=== PATIENT | female | born 1975 | race Two or more races ===

== ENCOUNTER 2017-04-15 09:33 | Emergency (ER) | payer OTHER ==
[2017-04-15 09:38] VITALS: BP 107/72; PULSE 88; TEMP 98; BMI 33.3
--- NOTE | 2017-04-15 10:06 | PDOC ---
History of Present Illness - General Chief Complaint: Respiratory Stated Complaint: SOB Time Seen by Provider: 04/15/17 09:41 History Source: Patient Exam Limitations: No Limitations - History of Present Illness Initial Comments: 04/15/17 09:52 Patient is a 41 y/o female, history of asthma presents emergency department for continual wheezing. Patient states that 2 weeks ago she developed a cough and cold-like symptoms, son with same, was seen by her PMD today started on prednisone 40 mg once a day for 5 days has now completed still with wheezing, productive green sputum cough. Denies fever. Allergies: No known allergies Medications: Albuterol when necessary Family History: Non-contributory Social History: Denies smoking, alcohol use, or IVDU Review of Systems GENERAL/CONSTITUTIONAL: No fever or chills. No weakness. No weight change. HEAD, EYES, EARS, NOSE AND THROAT: No change in vision. No ear pain or discharge. No sore throat. CARDIOVASCULAR: No chest pain or shortness of breath. RESPIRATORY: Productive cough and wheezing, no hemoptysis. GASTROINTESTINAL: No nausea, vomiting, diarrhea or constipation. No rectal bleeding. GENITOURINARY: No dysuria, frequency, or change in urination. MUSCULOSKELETAL: No joint or muscle swelling or pain. No neck or back pain. SKIN : No rash or easy bruising. Physical Exam: GENERAL: The patient is awake, alert, and fully oriented, in no acute distress. EYES: Pupils equal, round and reactive to light, extraocular movements intact, sclera anicteric, conjunctiva clear. ENT: Ears normal, nares patent, oropharynx clear without exudates. Moist mucous membranes. No uvula deviation NECK: Normal range of motion, supple without lymphadenopathy, JVD, or masses. LUNGS: Bilateral rhonchi and expiratory wheezing no crackles HEART: Regular rate and rhythm, normal S1 and S2 without murmur, rub or gallop. ABDOMEN: Soft, nontender, normoactive bowel sounds. No guarding, no rebound. No masses. No bruising or abrasions SKIN: Warm, Dry, normal turgor, no rashes or lesions noted. Past History - Past Medical History Allergies/Adverse Reactions: Allergies Allergy/AdvReac Type Severity Reaction Status Date / Time No Known Allergies Allergy Verified 04/15/17 09:34 Home Medications: Ambulatory Orders Albuterol 0.083% Nebulizer Mell [Ventolin 0.083% Nebulizer Soln -] 1 neb NEB QID 05/06/16 Albuterol Sulfate Inhaler - [Ventolin HFA Inhaler -] 1 - 2 inh PO Q4H 05/06/16 Calcium Carbonate [Calcium] 500 mg PO DAILY 05/06/16 Fluticasone Propionate [Flovent Diskus] 100 mcg IH DAILY 05/06/16 Azithromycin [Zithromax 250mg Tablets -] 250 mg PO UTDICT #6 tab 04/15/17 Anemia: Yes Asthma: Yes HTN: No (LOW BP) Suicide Attempt (Hx): No - Surgical History Cholecystectomy: Yes GI Surgery: Yes (gastric bypass [facility]) - Immunization History Immunization Up to Date: Yes - Psycho/Social/Smoking Cessation Hx Anxiety: No Suicidal Ideation: No Smoking Status: Yes Smoking History: Current every day smoker Have you smoked in the past 12 months: Yes Number of Cigarettes Smoked Daily: 10 Information on smoking cessation initiated: Yes 'Breaking Loose' booklet given: 04/15/17 Hx Alcohol Use: No Drug/Substance Use Hx: No Substance Use Type: None *Physical Exam - Vital Signs Last Vital Signs Temp Pulse Resp BP Pulse Ox 98.0 F 88 18 107/72 100 04/15/17 09:35 04/15/17 09:35 04/15/17 09:35 04/15/17 09:35 04/15/17 09:35 Medical Decision Making - Medical Decision Making 04/15/17 10:06 A/P: Patient with URI, asthma exacerbation. Posttreatment decreased wheezing. Combivent treatment given, will DC patient on azithromycin continued albuterol treatments. Decadron given while in emergency department. O2 sats 100%, lungs clear on reassessment. I discussed the physical exam findings, ancillary test results and final diagnoses with the patient. I answered all of the patient's questions. The patient was satisfied with the care received and felt comfortable with the discharge plan and treatment plan. The patient will call to arrange follow-up and will return to the Emergency Department with any new, persistent or worsening symptoms. 04/15/17 10:32 *DC/Admit/Observation/Transfer Diagnosis at time of Disposition: Bronchitis - Discharge Dispostion Admit: No - Prescriptions Prescriptions: Azithromycin [Zithromax 250mg Tablets -] 250 mg PO UTDICT #6 tab - Patient Instructions Printed Discharge Instructions: DI for Chronic Bronchitis
[2017-04-15] MEDS ORDERED: DEXAMETHASONE LIQUID 0.5 MG/5 ML 240 ML BULK BOTTLE PO ONE (10:07)
[2017-04-15] MEDS ORDERED: ALBUTEROL SO4 2.5/IPRATROPIUM 0.5 INH SOL 3 ML VIAL.NEB. NEB ONE (10:07)
== END 2017-04-15 10:39 | disposition home or self-care (01) ==
LOC: JERFT 09:33
PROC: 3E0F7GC Introduction of Other Therapeutic Substance into Respiratory Tract, Via Natural or Artificial Opening (ICD-10-PCS; principal; 2017-04-15)
DX: J40 Bronchitis, not specified as acute or chronic (principal); F17.210 Nicotine dependence, cigarettes, uncomplicated; Z98.84 Bariatric surgery status; I95.9 Hypotension, unspecified
CPT/HCPCS: 94640; 99281-25

== ENCOUNTER 2018-03-15 08:40 | Emergency (ER) | payer OTHER ==
[2018-03-15 08:53] VITALS: BP 128/84; PULSE 93; TEMP 98.5; BMI 33.3
--- NOTE | 2018-03-15 09:28 | PDOC ---
History of Present Illness - General Chief Complaint: Respiratory Stated Complaint: RESPIRATORY Time Seen by Provider: 03/15/18 09:21 History Source: Patient Exam Limitations: No Limitations - History of Present Illness Initial Comments: 03/15/18 9:49 Patient came for evaluation of persistent cough status post upper respiratory infection last week. States got a bad cold with chills fever and thick green phlegm last week, used [id number] medications and gradually went away. However patient states has persistent moist cough and feels congested. Now has pleuritic type chest pain due to excessive coughing. Has tried multiple over-the -counter medications but cough does not resolve. States has asthma but has not used any nebulizing treatments Timing/Duration: reports: changing over time, getting worse Severity: reports: moderate Modifying Factors: improves with: activity, albuterol inhaler Associated Symptoms: reports: cough, nasal congestion, nasal drainage, shortness of breath, sore throat, wheezing. denies: fever/chills Past History - Travel Traveled outside of the country in the last 30 days: No Close contact w/someone who was outside of country & ill: No - Past Medical History Allergies/Adverse Reactions: Allergies Allergy/AdvReac Type Severity Reaction Status Date / Time No Known Allergies Allergy Verified 03/15/18 08:49 Home Medications: Ambulatory Orders Benzonatate [Tessalon Pearls -] 100 mg PO TID #21 capsule 03/15/18 predniSONE [Deltasone -] 20 mg PO BID #8 tablet 03/15/18 Anemia: Yes Asthma: Yes COPD: No HTN: No (LOW BP) - Surgical History Cholecystectomy: Yes GI Surgery: Yes (gastric bypass [facility]) - Immunization History Immunization Up to Date: Yes - Suicide/Smoking/Psychosocial Hx Smoking Status: Yes Smoking History: Current every day smoker Have you smoked in the past 12 months: Yes Number of Cigarettes Smoked Daily: 20 Information on smoking cessation initiated: No 'Breaking Loose' booklet given: 04/15/17 Hx Alcohol Use: No Drug/Substance Use Hx: No Substance Use Type: None Review of Systems - Review of Systems Able to Perform ROS?: Yes Is the patient limited Serbian proficient: Yes Constitutional: Yes: Symptoms Reported, See HPI, Malaise. No: Fever HEENTM: Yes: Symptoms Reported, See HPI, Tearing, Nose Congestion, Difficulty Swallowing Respiratory: Yes: Symptoms reported, See HPI, Cough, Shortness of Breath, Wheezing Musculoskeletal: Yes: See HPI. No: Symptoms Reported Integumentary: Yes: Symptoms Reported All Other Systems: Reviewed and Negative *Physical Exam - Vital Signs Last Vital Signs Temp Pulse Resp BP Pulse Ox 98.5 F 93 H 19 128/84 99 03/15/18 08:50 03/15/18 08:50 03/15/18 08:50 03/15/18 08:50 03/15/18 08:50 - Physical Exam General Appearance: Yes: Nourished, Appropriately Dressed, Apparent Distress HEENT: positive: NUPUR, TMs Normal, Pharynx Normal (with posterior sinus drainage noted - white / thick ), Nasal Congestion, Rhinorrhea, Sinus Tenderness. negative: Pharyngeal Erythema Neck: positive: Tender, Supple, Lymphadenopathy (R), Lymphadenopathy (L) Respiratory/Chest: positive: Chest Tender (with deep inspiraiton.), Normal Breath Sounds, Decreased Breath Sounds, Wheezing Gastrointestinal/Abdominal: positive: Soft. negative: Tender Extremity: positive: Normal Capillary Refill, Normal Inspection Integumentary: positive: Dry Neurologic: positive: nurse special II-XII NML intact, Fully Oriented, Alert, Normal Mood/ Affect, Normal Response, Motor Strength 5/5 Medical Decision Making - Medical Decision Making 03/15/18 11:15 patient much improved after 2 DuoNeb's, 60 mg of prednisone. States feels able to breathe better, less coughing, and ready for discharge. *DC/Admit/Observation/Transfer Diagnosis at time of Disposition: Upper respiratory infection, viral Allergic rhinitis Qualifiers: Allergic rhinitis trigger: unspecified Allergic rhinitis seasonality: unspecified seasonality Qualified Code(s): J30.9 - Allergic rhinitis, unspecified - Discharge Dispostion Disposition: HOME Condition at time of disposition: Stable Decision to Admit order: No - Prescriptions Prescriptions: Benzonatate [Tessalon Pearls -] 100 mg PO TID #21 capsule predniSONE [Deltasone -] 20 mg PO BID #8 tablet - Referrals Referrals: Anitra Boles MD [Primary Care Provider] - - Patient Instructions Printed Discharge Instructions: DI for Viral Upper Respiratory Infection -- Adult, DI for Allergic Rhinitis Additional Instructions: Rest, drink lots of fluids: Teas, water, soups, Pedialyte Saltwater gargles Steamy showers/seem to face break up mucus Avoid contact with allergens, exposure to pollens, close windows on a windy day Avoid contact with others until fevers and cough resolved Lots of handwashing and good hygiene Continue [id number] medications for symptomatic relief Continue antihistamines daily until pollen season is over; Zyrtec, Claritin, Liliane during the daytime and Benadryl at nighttime as will make sleepy Tylenol or Motrin for fever and pain Continue albuterol nebulizers every 4-6 hours for the next 2 days then as needed for continued cough Prednisone as directed until completed Followup with private physician in one to 2 days Return to emergency department / pediatric hospital for worsened symptoms, fevers, dehydration - Post Discharge Activity Forms/Work/School Notes: Back to Work
[2018-03-15] MEDS ORDERED: predniSONE 20 MG TABLET (UD) ONE (09:40)
[2018-03-15] MEDS ORDERED: ALBUTEROL SO4 2.5/IPRATROPIUM 0.5 INH SOL 3 ML VIAL.NEB. NEB ONE ×3 (09:52→10:18)
[2018-03-15] MEDS ORDERED: predniSONE 20 MG TABLET (UD) PO ONE ×2 (09:52→10:11)
== END 2018-03-15 10:52 | disposition home or self-care (01) ==
LOC: JERFT 08:40
PROC: 3E0F7GC Introduction of Other Therapeutic Substance into Respiratory Tract, Via Natural or Artificial Opening (ICD-10-PCS; principal; 2018-03-15)
PROC: 3E0F7GC Introduction of Other Therapeutic Substance into Respiratory Tract, Via Natural or Artificial Opening (ICD-10-PCS; 2018-03-15)
DX: J06.9 Acute upper respiratory infection, unspecified (principal); J30.9 Allergic rhinitis, unspecified
CPT/HCPCS: 99281-25; J7620

== ENCOUNTER 2018-11-18 09:49 | Emergency (ER) | payer SELFPAY ==
--- NOTE | 2018-11-18 10:45 | PDOC ---
History of Present Illness - General Chief Complaint: Allergic Reaction Stated Complaint: SWELLING TONGUE / THROAT Time Seen by Provider: 11/18/18 10:44 History Source: Patient Exam Limitations: No Limitations - History of Present Illness Initial Comments: 11/18/18 11:22 The patient is a year old female, with a significant past medical history of gastric bypass (2001) and prior anemia (now resolved), who presents to the emergency department with sudden onset of facial and tongue swelling upon waking up around 6:30AM this morning. The patient states she ate dinner she prepared last night consisting of food she has eaten in the past. She states she felt well going to sleep, however, woke up with swelling to her lips, tongue and lower cheeks. She states she took 2 benadryl around 10AM which significantly improved her swelling, however, is concerned about a scratchy feeling in the back of her throat. She denies any rashes. She denies difficulty breathing. The patient denies chest pain, shortness of breath, headache and dizziness. The patient denies fever, chills, nausea, vomit, diarrhea and constipation. The patient denies dysuria, frequency, urgency and hematuria. Allergies: NKDA Past surgical history: gastric bypass, plastic surgery (excess skin removal), tubal ligation, Social history: 1 pack a day tobacco. PCP - Dr. Anitra OSBORNE CONSTITUTIONAL: Absent: fever, no chills, no fatigue EYES: Absent: visual changes ENT: (+) swelling to lips, cheeks and tongue. Absent: ear pain, no sore throat CARDIOVASCULAR: Absent: chest pain, no palpitations RESPIRATORY: Absent: cough, no SOB GASTROINTESTINAL: Absent: abdominal pain, no nausea, no vomiting, no constipation, no diarrhea GENITOURINARY: Absent: dysuria, no frequency, no hematuria MUSCULOSKELETAL: Absent: back pain, no arthralgia, no myalgia SKIN: Absent: rash NEURO: Absent: headache PE: GENERAL: The patient is in no acute distress, voice not muffled, no droolin. HEAD: Normal . EYES: PERRLA, EOMI, conjunctiva clear, non injected ENT: Ears normal, nares patent, oropharynx clear without exudates. Moist mucous membranes. Uvula midline not edematous, floor of mouth not edematous, no color changed NECK: Normal range of motion, supple without lymphadenopathy, no swelling observed LUNGS: Breath sounds equal, clear to auscultation bilaterally. No wheezes HEART:Regular rate and rhythm, normal S1 and S2 without murmur, rub or gallop. ABDOMEN: Soft, nontender, normoactive bowel sounds. No guarding, no rebound. EXTREMITIES: Normal range of motion, no edema. NEUROLOGICAL: Cranial nerves II through XII grossly intact. Normal speech. No focal neurological deficits. MUSCULOSKELETAL: Back non-tender to palpation SKIN: No urticaria Past History - Past Medical History Allergies/Adverse Reactions: Allergies Allergy/AdvReac Type Severity Reaction Status Date / Time No Known Allergies Allergy Verified 06/29/18 12:42 Home Medications: Ambulatory Orders EPINEPHrine (EPI-PEN 0.3MG) [Epipen 0.3MG -] 0.3 mg IM ASDIR #2 pens 11/18/18 Ranitidine HCl [Zantac] 150 mg PO DAILY #5 tablet 11/18/18 predniSONE [Deltasone -] 60 mg PO DAILY #12 tablet 11/18/18 Anemia: Yes Asthma: Yes COPD: No HTN: No (LOW BP) - Surgical History Cholecystectomy: Yes GI Surgery: Yes (gastric bypass [facility]) - Immunization History Immunization Up to Date: Yes - Suicide/Smoking/Psychosocial Hx Smoking Status: Yes Smoking History: Current every day smoker Have you smoked in the past 12 months: Yes Number of Cigarettes Smoked Daily: 20 'Breaking Loose' booklet given: 04/15/17 Hx Alcohol Use: No Drug/Substance Use Hx: No Substance Use Type: None ED Treatment Course - LABORATORY CBC & Chemistry Diagram: 11/18/18 11:23 11/18/18 11:23 Medical Decision Making - Medical Decision Making 11/18/18 11:06 Ms Frye is a 42 yo F with a h/o tobacco use, prior gastric bypass She presents to the ER after waking up with a swollen tongue and face Yesterday, she had codfish as well as sesame chicken She went to bed at 10pm Awoke at 630 am with her cheeks and tongue swollen No drooling No speech changes She took benadryl at 8 am which has helped Currently Speaking in clear and complete sentences No drooling Tongue swelling has reduced Cheek swelling has reduced No urticaria Uvula midline and non edematous Will do labs Will do rapid strep Will give solumedrol and Famotidine Will monitor 11/18/18 11:50 Laboratory Tests 11/18/18 11:23 Group A Strep Rapid Negative 11/18/18 12:19 Laboratory Tests 11/18/18 11:23 WBC 11.8 H Hgb 12.2 Hct 36.5 Plt Count 258 11/18/18 12:43 Laboratory Tests 11/18/18 11/18/18 11:23 11:23 WBC 11.8 H Hgb 12.2 Hct 36.5 Plt Count 258 Neutrophils % 79.8 Lymphocytes % 9.4 D BUN 11 Creatinine 0.6 Upon re assessment, pt states she feels much better NO DROOLING NO THROAT SWELLING NO VOICE CHANGES NO RASH Pt tolerating po with no difficulty Will discharge to home Follow up with PMD Clinical Impression: Allergic reaction vs. hereditary angioedema, initial presentation *DC/Admit/Observation/Transfer Diagnosis at time of Disposition: Allergic reaction Qualifiers: Encounter type: initial encounter Qualified Code(s): T78.40XA - Allergy, unspecified, initial encounter - Discharge Dispostion Disposition: HOME Condition at time of disposition: Stable Decision to Admit order: No - Referrals Referrals: Anitra Boles MD [Primary Care Provider] - - Patient Instructions Printed Discharge Instructions: DI for General Allergic Reactions Additional Instructions: Thank you for coming in to the ER today Please be sure to follow up with your PRIMARY CARE PHYSICIAN for assessment for Hereditary Angioedema Please also follow up with an Energy Broker for evaluation of assessment of possible allergens Please continue to take prednisone daily for the next 4 days You can continue to take Benadryl as needed Please return to the ER for any concerns or complaints For now, lets avoid Sesame seeds and Shellfish/Fish - Post Discharge Activity Forms/Work/School Notes: Back to Work
[2018-11-18] MEDS ORDERED: methylPREDNISolone NA SUCC 125 MG/2 ML VIAL IVPB ONE (11:03)
[2018-11-18] MEDS ORDERED: FAMOTIDINE 20 MG/50 ML IVPB 20 MG/50 ML MG IVPB ONE ×2 (11:03→11:11)
[2018-11-18] MEDS ORDERED: methylPREDNISolone NA SUCC 125 MG/2 ML VIAL ONE (11:11)
[2018-11-18 11:38] LABS: BASO % 0.5 % (0-2.0); HEMATOCRIT 36.5 % (32.4-45.2); HEMOGLOBIN 12.2 GM/dL (10.7-15.3); LYMPH % 9.4 % (8-40); MCH 30.4 pg (25.7-33.7); MCHC 33.4 g/dl (32.0-36.0); MEAN CELL VOLUME 91.1 fl (80-96); MONO % 7.3 % (3.8-10.2); NEUT % 79.8 % (42.8-82.8); PLATELET COUNT 258 K/MM3 (134-434); RDW 14.2 % (11.6-15.6); WHITE BLOOD COUNT 11.8 K/mm3 (4.0-10.0)
[2018-11-18 12:25] LABS: ALBUMIN 3.7 g/dl (3.4-5.0); ALK PHOS 78 U/L (45-117); ANION GAP 6 MMOL/L (8-16); BILIRUBIN,TOTAL 0.3 mg/dL (0.2-1); BLOOD UREA NITROGEN 11 mg/dL (7-18); CHLORIDE 105 mmol/L (98-107); CO2 29 mmol/L (21-32); CREATININE 0.6 mg/dL (0.55-1.3); GLUCOSE,RANDOM 88 mg/dL (74-106); POTASSIUM 4.4 mmol/L (3.5-5.1); SGOT/AST 21 U/L (15-37); SGPT/ALT 22 U/L (13-61); SODIUM 140 mmol/L (136-145)
[2018-11-18 13:09] VITALS: BP 112/78; PULSE 86; TEMP 98.2
== END 2018-11-18 13:07 | disposition home or self-care (01) ==
LOC: JER 09:49
PROC: 3E033GC Introduction of Other Therapeutic Substance into Peripheral Vein, Percutaneous Approach (ICD-10-PCS; principal; 2018-11-18)
DX: T78.40XA Allergy, unspecified, initial encounter (principal); Z98.84 Bariatric surgery status; F17.210 Nicotine dependence, cigarettes, uncomplicated; J45.909 Unspecified asthma, uncomplicated; I95.9 Hypotension, unspecified
CPT/HCPCS: 36415; 80053; 85025; 87070; 87880; 99282-25

== ENCOUNTER 2019-04-30 09:36 | Emergency (ER) | payer OTHER ==
[2019-04-30 09:48] VITALS: BP 125/67; PULSE 92; TEMP 98.3; BMI 33.9
[2019-04-30] MEDS ORDERED: KETOROLAC TROMETHAMINE 60 MG/2 ML VIAL IM ONE (10:42)
[2019-04-30] MEDS ORDERED: KETOROLAC TROMETHAMINE 60 MG/2 ML VIAL ONE (11:06)
--- NOTE | 2019-04-30 11:39 | PDOC ---
History of Present Illness - General Chief Complaint: Chronic pain Stated Complaint: LT. LEG PAIN Time Seen by Provider: 04/30/19 10:15 History Source: Patient Exam Limitations: No Limitations Past History - Travel Traveled outside of the country in the last 30 days: No Close contact w/someone who was outside of country & ill: No - Past Medical History Allergies/Adverse Reactions: Allergies Allergy/AdvReac Type Severity Reaction Status Date / Time No Known Allergies Allergy Verified 04/30/19 09:48 Home Medications: Ambulatory Orders Ibuprofen 800 mg PO TID #30 tablet 04/30/19 Anemia: Yes Asthma: Yes COPD: No HTN: No (LOW BP) - Surgical History Cholecystectomy: Yes GI Surgery: Yes (gastric bypass tummy tuck) - Immunization History Immunization Up to Date: Yes - Suicide/Smoking/Psychosocial Hx Smoking Status: Yes Smoking History: Current every day smoker Have you smoked in the past 12 months: Yes Number of Cigarettes Smoked Daily: 30 Information on smoking cessation initiated: No 'Breaking Loose' booklet given: 04/15/17 Hx Alcohol Use: Yes (occasionally) Drug/Substance Use Hx: No Substance Use Type: None Review of Systems - Review of Systems Able to Perform ROS?: Yes Comments:: 04/30/19 11:34 CONSTITUTIONAL: Absent: fever, chills, diaphoresis, generalized weakness, malaise, loss of appetite CARDIOVASCULAR: GASTROINTESTINAL: Absent: abdominal pain, abdominal distension, nausea, vomiting, diarrhea, constipation, melena, hematochezia GENITOURINARY: Absent: dysuria, frequency, urgency, hesitancy, hematuria, flank pain, genital pain MUSCULOSKELETAL: Present: L hip pain Absent: myalgia, joint swelling SKIN: Absent: rash, itching, pallor NEUROLOGIC: Absent: headache, focal weakness or paresthesias, dizziness, unsteady gait, seizure, mental status changes, bladder or bowel incontinence PSYCHIATRIC: Absent: anxiety, depression, suicidal or homicidal ideation, hallucinations. Is the patient limited Citizen Of [place] proficient: No *Physical Exam - Vital Signs Last Vital Signs Temp Pulse Resp BP Pulse Ox 98.3 F 92 H 16 125/67 98 04/30/19 09:45 04/30/19 09:45 04/30/19 09:45 04/30/19 09:45 04/30/19 09:45 - Physical Exam Comments: 04/30/19 11:38 GENERAL: Well developed, well nourished. Awake and alert. No acute distress. MUSCULOSKELETAL TTP on the L groin. Normal range of motion at all joints. No bony deformities or tenderness. No CVA tenderness. EXTREMITIES: No cyanosis. No clubbing. No edema. No calf tenderness. SKIN: Warm and dry. Normal capillary refill. No rashes. No jaundice. NEUROLOGICAL: Alert, awake, appropriate. Cranial nerves 2-12 intact. No deficits to light touch and temperature in face, upper extremities and lower extremities. No motor deficits in the in face, upper extremities and lower extremities. Normoreflexic in the upper and lower extremities. Normal speech. Toes are down- going bilaterally. Gait is normal without ataxia. PSYCHIATRIC: Cooperative. Good eye contact. Appropriate mood and affect. ED Treatment Course - RADIOLOGY Radiology Studies Ordered: Category Date Time Status HIP & PELVIS-LEFT [RAD] Stat Radiology 04/30/19 10:42 Completed - Medications Given in the ED: ED Medications Discontinued Medications Generic Name Dose Route Start Last Admin Trade Name Marsq PRN Reason Stop Dose Admin Ketorolac Tromethamine 60 mg 04/30/19 10:42 04/30/19 11:11 Toradol Injection - IM 04/30/19 10:43 60 mg ONCE ONE Administration Medical Decision Making - Medical Decision Making 04/30/19 11:41 The patient is a 43-year-old female who has left groin pain for the past 4 months, worsening over the past week. She states the pain is worse when walking. She also has increased pain with prolonged sitting. She states that she fell 4 months ago. Denies numbness and tingling, weakness to the affected extremity. A/P: L hip pain On exam TTP of the L groin, no cellulitis, fever, no saddle anesthesa or back pain X-ray obtrained. No acute pathology noted. No OA noted Toradol given with relief of symptoms DC home with ortho follow up I discussed the physical exam findings, ancillary test results and final diagnoses with the patient. I answered all of the patient's questions. The patient was satisfied with the care received and felt comfortable with the discharge plan and treatment plan. The Patient agrees to follow up with the primary care physician/specialist within 24-72 hours. Return precautions were given. *DC/Admit/Observation/Transfer Diagnosis at time of Disposition: Hip pain Qualifiers: Laterality: left Qualified Code(s): M25.552 - Pain in left hip - Discharge Dispostion Disposition: HOME Condition at time of disposition: Stable Decision to Admit order: No - Referrals Referrals: Anitra Boles MD [Primary Care Provider] - Yifan Gallardo DO [Staff Physician] - - Patient Instructions Printed Discharge Instructions: DI for Hip Pain Additional Instructions: You were evaluated for your hip pain today. Your x-ray shows no fracture. I suspect that this is a ligament or muscle issue. Please take Motrin 800 mg every 8 hours as needed for pain. Please follow-up with orthopedics next week. A referral has been provided. Return to the ER for any new or worsening symptoms. - Post Discharge Activity
== END 2019-04-30 12:07 | disposition home or self-care (01) ==
LOC: JERFT 09:36
PROC: 3E0233Z Introduction of Anti-inflammatory into Muscle, Percutaneous Approach (ICD-10-PCS; principal; 2019-04-30)
DX: M25.552 Pain in left hip (principal); F17.210 Nicotine dependence, cigarettes, uncomplicated; J45.909 Unspecified asthma, uncomplicated; Z98.84 Bariatric surgery status; I95.9 Hypotension, unspecified
CPT/HCPCS: 73523-TC-FY; 96372; 99282-25

== ENCOUNTER 2024-10-15 00:41 | Emergency (ER) | payer OTHER ==
[2024-10-15 01:09] VITALS: RESP 20; TEMP 98.5; BMI 29.9
[2024-10-15] MEDS ORDERED: ACETAMINOPHEN 325 MG TABLET (FP) ONE (02:06)
[2024-10-15] MEDS ORDERED: LIDOCAINE 5% TOPICAL PATCH ONE (02:07)
[2024-10-15] MEDS: LIDOCAINE 5% TOPICAL PATCH TP ONE (02:12)
[2024-10-15] MEDS: ACETAMINOPHEN 500 MG TABLET (FP) PO ONE (02:13)
[2024-10-15] MEDS ORDERED: IBUPROFEN 400 MG TABLET (FP) PO ONE (08:02)
[2024-10-15] MEDS: IBUPROFEN 400 MG TABLET (FP) PO ONE (08:05)
[2024-10-15 08:29] VITALS: BP 109/69; PULSE 81
[2024-10-15] MEDS ORDERED: LIDOCAINE PATCH REMOVAL MC SCH (22:00)
== END 2024-10-15 10:36 | disposition home or self-care (01) ==
LOC: JER 00:41
DX: S82.035A Nondisplaced transverse fracture of left patella, initial encounter for closed fracture (principal); W16.42XA Fall into unspecified water causing other injury, initial encounter
CPT/HCPCS: 70450-TC; 73564-TC-LT-FY; 73610-TC-LT-FY; 73630-TC-LT; 99284-25